=== PATIENT | female | born 1990 | race Caucasian/White ===

== ENCOUNTER 2017-01-31 16:58 | Emergency (ER) | payer OTHER ==
[~2017-01-31] VITALS: Ht 165.1 cm; Wt 65.8 kg
[2017-01-31] MEDS ORDERED: Norco 5mg/325mg tab ORAL ONE (17:45)
[2017-01-31] MEDS ORDERED: Lidocaine 1% Plain 30 ml INJ ONE (17:45)
--- NOTE | 2017-01-31 18:56 | Emergency Room Report ---
History of Present Illness General Chief Complaint: Laceration Source: Patient Present Illness HPI 26-year-old female presents to the emergency department complaining of 8/10 in severity pain with bleeding and open lacerations to the right groin area x20 minutes. Patient states that she sat on top of a glass tank, and it shattered and she sustained laceration. Patient states she does not know when her last tetanus vaccination was she believes it was approximately 9 years ago. Patient denies taking blood thinning medications. Patient denies weakness or inability to move the lower extremities. Denies numbness tingling or loss of sensation or gross motor movements of the extremities, incontinence of bowel or bladder. Denies CP, Palpitations, LOC, AMS, dizziness, Changes in Vision, Sensation, paresthesias, or a sudden severe headache. Allergies: Coded Allergies: No Known Allergies (Unverified , 01/31/17) Patient History Past Medical History: see triage record Past Surgical History: none Pertinent Family History: none Last Menstrual Period: now Now: No Reviewed Nursing Documentation: PMH: Agreed, PSxH: Agreed Nursing Documentation-PMH Past Medical History: No History, Except For Review of Systems All Other Systems: negative except mentioned in HPI Physical Exam Vital Signs Date Time Temp Pulse Resp B/P (MAP) Pulse Ox O2 Delivery O2 Flow Rate FiO2 01/31/17 17:01 97.9 87 18 148/95 98 Room Air Sp02 EP Interpretation: reviewed, normal General Appearance: no apparent distress, alert, GCS 15, non-toxic Head: normocephalic, atraumatic ENT: hearing grossly normal, normal voice Neck: full range of motion Respiratory: lungs clear, normal breath sounds, speaking full sentences Cardiovascular #1: regular rate, rhythm, normal capillary refill Gastrointestinal: no guarding Musculoskeletal: back normal, gait/station normal, normal range of motion, non- tender Neurologic: alert, oriented x3, responsive, motor strength/tone normal, sensory intact, normal gait, speech normal Skin: normal color, no rash, warm/dry, well hydrated, laceration - two lacerations to the right inner thigh/groin area --Laceration #1 laceration approx 8 cm in length, Laceration #2 laceration approx 2 cm in length, NVI distally Procedures Laceration/Wound Repair Laceration/Wound Repair #1: Consent: Verbal Wound Location: lower extremity - right inner thigh/groin Wound's Depth, Shape: linear Wound Length (cm): 8 Wound Explored: clean Irrigated w/ Saline (ccs): 1000 Anesthesia: Lidocaine w/ Epi Volume Anesthetic (ccs): 5 Wound Repaired With: sutures Suture Size/Type: 4:0 Layer Closure?: Yes Deep Layer Suture Size/Type: 4:0, other - vycril Number Deep Layer Sutures: 6 Sterile Dressing Applied?: Yes Splint Applied?: No Sling Applied?: No Patient Tolerated: Well Complications: None Laceration/Wound Repair #2: Consent: Verbal Wound Location: lower extremity - right inner thigh/groin area Wound's Depth, Shape: linear Wound Explored: clean Irrigated w/ Saline (ccs): 1000 Anesthesia: Lidocaine w/ Epi Volume Anesthetic (ccs): 4 Wound Repaired With: sutures Suture Size/Type: 4:0 Number of Sutures: 3 Layer Closure?: No Sterile Dressing Applied?: Yes Splint Applied?: No Sling Applied?: No Patient Tolerated: Well Complications: None Medical Decision Making PA Attestation Dr. Arvizu is my supervising Physician whom patient management has been discussed with. Diagnostic Impression: Primary Impression: Laceration ER Course 26-year-old female presents to the emergency department complaining of 8/10 in severity pain with bleeding and open lacerations to the right groin area x20 minutes. Patient states that she sat on top of a glass tank, and it shattered and she sustained laceration. Patient states she does not know when her last tetanus vaccination was she believes it was approximately 9 years ago. Patient denies taking blood thinning medications. Patient denies weakness or inability to move the lower extremities. Denies numbness tingling or loss of sensation or gross motor movements of the extremities, incontinence of bowel or bladder. Denies CP, Palpitations, LOC, AMS, dizziness, Changes in Vision, Sensation, paresthesias, or a sudden severe headache. Ddx considered but are not limited to laceration, tendon injury, cellulitis, amputation Vital signs: are WNL, pt. is afebrile H&PE are most consistent with: Laceration #1 laceration approx 8 cm in length, Laceration #2 laceration approx 2 cm in length ORDERS: -HIP Xray 2 views: negative for FB. ED INTERVENTIONS: -Tetanus vaccine was administered as pt. vaccination status was unknown. - The wound was copiously irrigated with normal saline, and explored for foreign body for which no FB was found. - pt. is anesthetized with 1%lidocaine w. epi. 9cc -Laceration # 1 was closed using --- 6 ,deep vycril 4.0 mattress sutures,were used to approximate the underlying subcutaneous fat of the open wound. Then 16 interrupted 4.0 Proline sutures. -Laceration # 2 was closed using ---- 3 interrupted 4.0 Proline sutures. -Bacitracin and sterile dressing is applied. Discussed with patient: That we make every effort to approximate the laceration as best as we can so that scarring will be as cosmetically pleasing as possible with our limited cosmetic skill set in the Emergency dept. Regardless of our best efforts there will be scarring after laceration repair. The extent of scarring is unknown at this time. DISCHARGE: At this time pt. is stable for d/c to home. Will provide printed patient care instructions, and any necessary prescriptions. Care plan and follow up instructions have been discussed with the patient prior to discharge. Other X-Ray Diagnostic Results Other X-Ray Diagnostic Results : X-Ray ordered: Right HIP # of Views/Limited Vs Complete: 2 View Indication: Other - to R/O foreign Bodies EP Interpretation: Yes PA Xray: Interpretation reviewed, by supervising MD, and agrees with findings. Interpretation: no dislocation, no soft tissue swelling, no fractures, other - soft tissue laceration noted, no obvious radio-opaque foreign bodies Impression: No acute disease Electronically Signed by: Cathy Washburn PA-C Last Vital Signs Date Time Temp Pulse Resp B/P (MAP) Pulse Ox O2 Delivery O2 Flow Rate FiO2 01/31/17 17:01 97.9 87 18 148/95 98 Room Air Disposition: HOME, SELF-CARE Condition: Stable Scripts Hydrocodone Bit/Acetaminophen 5-325* (NORCO 5-325*) 1 Each Tablet 1 TAB ORAL Q6H Y for For Pain, #4 TAB 0 Refills Prov: Cathy Washburn 01/31/17 Lidocaine (Lidoderm) 1 Each Adh..patch 1 PATCH TOPIC DAILY, #7 PATCH 0 Refills Patch(es) may remain in place for up to 12 hours in any 24-hour period. Prov: Cathy Washburn 01/31/17 Bacitracin/Polymyxin B Sulfate (BACITRACIN-POLYMYXIN OINTMENT) 28.35 Gm Oint...g. 1 APPLIC TP BID, #28.3 GM Prov: Cathy Washburn 01/31/17 Cephalexin* (KEFLEX*) 500 Mg Capsule 500 MG ORAL EVERY 12 HOURS for 7 Days, #14 CAP 0 Refills Prov: Cathy Washburn 01/31/17 Departure Forms: Return to Work Return to Work Date: Feb 03, 2017 Work Restrictions: None Return to Full Activity: Feb 03, 2017 Patient Instructions: Laceration Care, Adult Additional Instructions: Take medications as directed. Follow up with a Primary Care Provider in 3-5 days, even if your symptoms have resolved. --Please review list of primary care clinics, if you do not already have a primary care provider Return sooner to ED if new symptoms occur, or current symptoms become worse. - Please note that this Emergency Department Report was dictated using [employer] manufacturing supervisor technology software, occasionally this can lead to erroneous entry secondary to interpretation by the dictation equipment. Cathy Washburn Jan 31, 2017 18:56
[2017-01-31] MEDS ORDERED: BACITRACIN-P28.35 GM TP (19:05)
[2017-01-31] MEDS ORDERED: CEPHALEXIN500 MG ORAL (19:05)
[2017-01-31] MEDS ORDERED: LORazepam 1mg tab ORAL ONE (19:30)
[2017-01-31] MEDS ORDERED: LIDODERM700 M1 TOPIC (20:41)
[2017-01-31] MEDS ORDERED: NORCO 5-325 TA1 EACH ORAL (20:41)
[2017-01-31 20:55] VITALS: BP 140/87
[2017-01-31] MEDS ORDERED: Tetanus/Diptheria/Pertussis Vaccine 0.5ml Syr IM ONE ×2 (21:14→21:15)
--- NOTE | 2017-02-01 12:52 | Diagnostic Imaging Report ---
Indications: hip pain Findings: Two views of the right hip were obtained. No acute fracture is demonstrated. Alignment of the hip is within normal limits. Soft tissues are unremarkable. Impression: Negative for acute injury.
== END 2017-01-31 20:55 | disposition home or self-care (01) ==
LOC: EMR 19:37
DX: S31.113A Laceration without foreign body of abdominal wall, right lower quadrant without penetration into peritoneal cavity, initial encounter (principal); W25.XXXA Contact with sharp glass, initial encounter; Y92.89 Other specified places as the place of occurrence of the external cause; Z23 Encounter for immunization
CPT/HCPCS: 12001; 73502; 90471; 90715; 99284; J2001